=== PATIENT | male | born 1975 | race Two or more races ===

== ENCOUNTER 2016-11-04 16:01 | Emergency (ER) | payer SELFPAY ==
[~2016-11-04] VITALS: Ht 170.2 cm; Wt 93.0 kg
--- NOTE | 2016-11-04 16:08 | NUR ---
PT BIB RA C/O ETOH INTOX. VERBALLY RESPONSIVE. NAD NOTED. DENIES PHYSICAL COMPLAINTS. RESP EVEN UNLABORED. IN ER BED 14 ON MONITOR.
[2016-11-04 18:08] LABS: BASOPHILS % (AUTO) 0.4 % (0.0-2.0); EOSINOPHILS # (AUTO) 0.1 /CMM (0.0-0.7); EOSINOPHILS % (AUTO) 1.1 % (0.0-6.0); HEMATOCRIT 30 % (39-51); HEMOGLOBIN 10.7 g/dL (13.5-17.5); LYMPHOCYTES % (AUTO) 25.2 % (20.0-44.0); MEAN CORPUSCULAR HEMOGLOBIN 36 PG (26.0-33.0); MEAN CORPUSCULAR HGB CONC 36 g/dl (31.0-36.0); MEAN CORPUSCULAR VOLUME 100 fL (80-96); MONOCYTES # (AUTO) 0.4 /CMM (0.1-1.30); MONOCYTES % (AUTO) 5.4 % (2.0-12.0); NEUTROPHILS # (AUTO) 5.4 /CMM (1.8-8.9); NEUTROPHILS % (AUTO) 67.9 % (43.0-81.0); PLATELET COUNT (AUTO) 179 /CMM (150-450); RDW COEFFICIENT OF VARIATION 15.1 (11.5-15.0); RED BLOOD CELL COUNT(AUTO) 2.99 MIL/uL (4.5-6.0); WHITE BLOOD COUNT (AUTO) 7.9 K/uL (4.3-11.0)
[2016-11-04 18:18] LABS: CALCIUM, SERUM 7.9 mg/dL (8.5-10.1); CREATININE 0.6 mg/dL (0.6-1.3); POTASSIUM 3.1 mmol/L (3.5-5.1)
[2016-11-04 18:31] LABS: ALBUMIN 1.7 g/dL (3.4-5.0); BILIRUBIN,TOTAL 1.6 mg/dL (0.2-1.0); TOTAL PROTEIN, SERUM 6.7 g/dL (6.4-8.2)
[2016-11-04 19:20] LABS: APPEARANCE,URINE Clear (CLEAR); BILIRUBIN,URINE SMALL (NEGATIVE); BLOOD, URINE Negative Ery/uL (NEGATIVE); COLOR,URINE Yellow (YELLOW); KETONES,URINE Negative (NEGATIVE); LEUKOCYTE ESTERASE ,URINE Negative (NEGATIVE); NITRITE, URINE Negative (NEGATIVE); PH,URINE 6.5 (5.0-8.0); PROTEIN,URINE Negative (NEGATIVE); UGLUCOSE 500 MG/DL mg/dL (NEGATIVE)
--- NOTE | 2016-11-04 19:31 | NUR ---
SPOKE WITH PT'S MOTHER VIA WELDING MACHINE OPERATOR HELPER GAS; SHE WILL COME OVERLOCK HEMMER THE PT.
--- NOTE | 2016-11-04 19:40 | NUR ---
Makeda valle in EDM - 11/04/16 at 1953 by HFOX PT ELOPED FROM ER, AMBULATORY WITH STEADY GAIT USING OWN WALKER. A/OX4.
[2016-11-04] MEDS ORDERED: POTASSIUM CHLORIDE 20 MEQ TAB.PRT.SR PO ONE (19:47)
--- NOTE | 2016-11-04 19:53 | NUR ---
PT AMBULATED FROM ER WITH STEADY GAIT USING OWN WALKER. A/OX4. [facility] ADMINISTERED ORDERED. AWAITING MOTHER IN [facility]. VERBAL DISCHARGE TEACHING COMPLETED AND VERBALIZED UNDERSTANDING.
[2016-11-04 19:55] VITALS: BP 137/89
[2016-11-04] MEDS: POTASSIUM CHLORIDE 20 MEQ TAB.PRT.SR PO ONE (19:55)
== END 2016-11-04 19:57 | disposition left against medical advice (07) ==
LOC: ER 16:05
DX: F10.129 Alcohol abuse with intoxication, unspecified (principal); E87.6 Hypokalemia; I50.9 Heart failure, unspecified; E11.9 Type 2 diabetes mellitus without complications
CPT/HCPCS: 36415; 71010-TC; 80053-TC; 81000-TC; 83880; 85025-TC; A4606; G0480; Z7610